=== PATIENT | female | born 1950 | race Caucasian/White ===

== ENCOUNTER → 2021-02-16 | Day surgery (SDC) | payer MEDICARE, OTHER ==
[~2021-02-16] MED LIST: ALDACTONE25 MG PO; ASPERCREME 1141.7 GM TOP; ASPIRIN EC81 MG PO; BIOFREEZE89 ML TOP; CALCIUM 600 +1 EAC3 PO; CARBIDOPA-LEVO1 EA14 PO; CONSTULOSE10 GM/15 M PO; CRESTOR20 MG PO; DULCOLAX10 MG PR; FERROUS SULFAT325 M2 PO; GLUCAGON EMERGEN1 MG IM; GLUCOSE GEL38 GM PO; HUMALOG100 UNIT/3 SQ; INSULIN AS100 UNIT/2 INJ; LACTULOSE10 GM/15 M PO; LASIX TAB 20 MG20 MG PO; LEVEMIR100 UNIT/1 SC; LOKELMA5 GM PO; LOPRESSOR 25 MG25 MG PO; MAGNESIUM500 MG PO; MECLIZINE HCL25 MG PO; MIRALAX17 GM PO; MIRTAZAPINE15 MG PO; NEURONTIN 100100 MG PO; NOVOFINE AUTOC1 EACH SC; NOVOLOG FL100 UNIT/1 SC; OMEPRAZOLE40 MG PO; ONDANSETRON4 MG/2 M2 IM; PROTONIX40 MG PO; PROVENTIL HFA6.7 GM INH; SERTRALINE HCL25 MG PO; TRAMADOL HCL50 MG PO; VANCOMYCIN HCL125 MG PO; VITAMIN C500 MG PO; VITAMIN D3125 MCG PO; ZINC SULFATE50 M1 PO; ZOLOFT50 MG PO; [UNRECOGNIZED DRUG - OTHER] IM
== END | disposition home or self-care (01) ==
LOC: OR 09:45
PROVIDERS: Internal Medicine Gastroenterology
DX: K76.6 Portal hypertension (principal); K31.89 Other diseases of stomach and duodenum; K44.9 Diaphragmatic hernia without obstruction or gangrene; K74.60 Unspecified cirrhosis of liver; R18.8 Other ascites; K75.81 Nonalcoholic steatohepatitis (NASH); D50.0 Iron deficiency anemia secondary to blood loss (chronic); I10 Essential (primary) hypertension; E11.9 Type 2 diabetes mellitus without complications; K21.9 Gastro-esophageal reflux disease without esophagitis; E78.00 Pure hypercholesterolemia, unspecified; F41.9 Anxiety disorder, unspecified; E66.3 Overweight; Z68.1 Body mass index [BMI] 19.9 or less, adult; Z79.4 Long term (current) use of insulin; Z79.899 Other long term (current) drug therapy
CPT/HCPCS: 80048; 82962; J2704; J7040

== ENCOUNTER → 2021-03-27 | Outpatient (CLI) | payer MEDICARE, OTHER ==
[~2021-03-27] VITALS: Ht 162.6 cm; Wt 49.4 kg
== END ==
LOC: OPSV 03-20 10:00
PROVIDERS: Internal Medicine Gastroenterology
DX: K74.60 Unspecified cirrhosis of liver (principal); R18.8 Other ascites
CPT/HCPCS: 36415; 80048; 96365; C1729; P9047

== ENCOUNTER → 2021-04-17 | Outpatient (CLI) | payer MEDICARE, OTHER ==
[~2021-04-17] VITALS: Ht 162.6 cm; Wt 49.4 kg
== END ==
LOC: OPSV 09:49
DX: R18.8 Other ascites (principal); K74.60 Unspecified cirrhosis of liver
CPT/HCPCS: 96365; C1729; P9047

== ENCOUNTER → 2021-05-11 | Outpatient (CLI) | payer MEDICARE, OTHER ==
[~2021-05-11] VITALS: Ht 162.6 cm; Wt 49.4 kg
[2021-05-11 12:10] LABS: HEMOGLOBIN 8.3 gm/dl (12.3-15.3); RED BLOOD COUNT 3.42 M/UL (4.00-5.10); WHITE BLOOD COUNT 3.6 K/UL (4.5-11.0)
== END ==
LOC: OPSV 05-01 10:00
PROVIDERS: Internal Medicine Gastroenterology
DX: K74.60 Unspecified cirrhosis of liver (principal); R18.8 Other ascites
CPT/HCPCS: 36415; 85025; C1729; P9047

== ENCOUNTER → 2021-06-01 | Outpatient (CLI) | payer MEDICARE, OTHER ==
[~2021-06-01] VITALS: Ht 162.6 cm; Wt 49.4 kg
== END ==
LOC: OPSV 10:00
DX: R18.8 Other ascites (principal)
CPT/HCPCS: 96365; C1729; P9047

== ENCOUNTER 2021-06-16 15:25 | Emergency (ER) | payer MEDICARE, OTHER ==
[2021-06-16 16:29] LABS: HEMOGLOBIN 8.6 gm/dl (12.3-15.3); RED BLOOD COUNT 3.71 M/UL (4.00-5.10); WHITE BLOOD COUNT 2.9 K/UL (4.5-11.0)
== END 2021-06-16 21:45 | disposition home or self-care (01) ==
LOC: ER1 15:25
PROVIDERS: Family Medicine
DX: K74.60 Unspecified cirrhosis of liver (principal); D64.9 Anemia, unspecified; R18.8 Other ascites; D72.819 Decreased white blood cell count, unspecified; D69.6 Thrombocytopenia, unspecified; N18.9 Chronic kidney disease, unspecified; E10.22 Type 1 diabetes mellitus with diabetic chronic kidney disease; Z86.59 Personal history of other mental and behavioral disorders; Z88.5 Allergy status to narcotic agent; Z20.822 Contact with and (suspected) exposure to COVID-19
CPT/HCPCS: 80053; 82550; 82553; 83605; 83690; 83735; 84484; 85025; 85610; 87086; 93005; 96374; 99284; J2405; U0002